=== PATIENT | female | born 1980 | race Two or more races ===

== ENCOUNTER 2018-08-20 11:05 | Observation (INO) | payer MEDICAID ==
[2018-08-20 12:36] LABS: Urine Bacteria FEW /hpf (None Seen); Urine Blood 1+ /uL (Negative); Urine Mucus FEW (None Seen); Urine Specific Gravity 1.026 (1.001-1.035); Urine WBC 37 /hpf (0 - 5)
[2018-08-20 12:44] LABS: BUN/Creatinine Ratio 11.7; Calcium 8.7 mg/dL (8.5-10.1); Potassium 3.9 mmol/L (3.5-5.1)
[2018-08-20 12:47] LABS: Alcohol, Urine < 3.0 mg/dL (0-5); Amphetamine Screen, Urine NEGATIVE (NEGATIVE); Barbiturate Scree,Urine NEGATIVE (NEGATIVE); Benzodiazephine Screen, Urine NEGATIVE (NEGATIVE); Cannabinoid Screen, Urine NEGATIVE (NEGATIVE); Cocaine Screen, Urine NEGATIVE (NEGATIVE); Opiate Scree,Urine NEGATIVE (NEGATIVE); Phencyclidine Screen, Urine NEGATIVE (NEGATIVE)
[2018-08-20] MEDS ORDERED: PREN-96 PO (13:09)
== END 2018-08-20 13:12 | disposition home or self-care (01) | DRG 566 ==
LOC: LDRP 11:05
PROVIDERS: ADMIT Specialist; ATTEND Specialist
DX: O99.613 Diseases of the digestive system complicating pregnancy, third trimester (principal); K52.9 Noninfective gastroenteritis and colitis, unspecified; O21.2 Late vomiting of pregnancy; O09.523 Supervision of elderly multigravida, third trimester; Z3A.37 37 weeks gestation of pregnancy
CPT/HCPCS: 36415; 59025; 80048; 80307; 81001; 81002; G0378

== ENCOUNTER 2018-09-10 09:05 | Observation (INO) | payer MEDICAID ==
[~2018-09-10 09:05] MED LIST: PREN-96 PO
== END 2018-09-10 10:15 | disposition home or self-care (01) | DRG 566 ==
LOC: LDRP 09:05
PROVIDERS: ADMIT Obstetrics & Gynecology; ATTEND Obstetrics & Gynecology
DX: O48.0 Post-term pregnancy (principal); O09.523 Supervision of elderly multigravida, third trimester; O62.9 Abnormality of forces of labor, unspecified; Z3A.40 40 weeks gestation of pregnancy
CPT/HCPCS: 59025; 76818; 81002; G0378

== ENCOUNTER 2018-09-12 14:10 | Observation (INO) | payer MEDICAID ==
[~2018-09-12] VITALS: Ht 165.1 cm; Wt 108.0 kg
== END 2018-09-12 15:45 | disposition home or self-care (01) | DRG 566 ==
LOC: LDRP 14:10
PROVIDERS: ADMIT Obstetrics & Gynecology; ATTEND Obstetrics & Gynecology
DX: O48.0 Post-term pregnancy (principal); O09.523 Supervision of elderly multigravida, third trimester; O62.9 Abnormality of forces of labor, unspecified; Z3A.40 40 weeks gestation of pregnancy
CPT/HCPCS: 59025; 76818; 81002; G0378

== ENCOUNTER 2018-09-14 08:45 | Observation (INO) | payer MEDICAID | END 2018-09-14 09:50 | disposition home or self-care (01) | DRG 566 | LOC: LDRP 08:45 | PROVIDERS: ADMIT Specialist; ATTEND Specialist | DX: O48.0 Post-term pregnancy (principal); O09.523 Supervision of elderly multigravida, third trimester; O62.9 Abnormality of forces of labor, unspecified; Z3A.40 40 weeks gestation of pregnancy | CPT/HCPCS: 59025; 76818; 81002; G0378 ==

== ENCOUNTER 2018-09-16 08:45 | Inpatient (IN) | payer MEDICAID ==
[~2018-09-16] VITALS: Ht 165.1 cm; Wt 106.6 kg
[2018-09-16] MEDS ORDERED: WITCH HAZEL-GLYCERIN PAD TOP PRN (12:30)
[2018-09-16] MEDS ORDERED: NALBUPHINE HCL 10 MG/1ml INJECTION IV PRN (12:30)
[2018-09-16] MEDS ORDERED: PHISODERM TOP SOLN 240ML BTL TOP PRN (12:30)
[2018-09-16] MEDS ORDERED: LIDOCAINE 2%HCL (LOCAL ANESTH.) INJ 20ML MDV ID ONE ×2 (12:30→15:15)
[2018-09-16] MEDS ORDERED: DERMOPLAST 60ML BOTTLE TOP PRN (12:30)
[2018-09-16] MEDS ORDERED: METHYLERGONOVINE MALEATE 0.2 MG/ML AMP IM PRN (12:30)
[2018-09-16 13:12] LABS: Basophils # (auto) 0.1 uL; Basophils % (auto) 0.7 % (0.0-2.0); Eosinophils # (auto) 0 uL; Eosinophils % (auto) 0.3 % (0.0-7.0); Hematocrit 39.5 % (36.0-46.0); Hemoglobin 13.1 g/dL (12.2-16.2); Lymphocytes # (auto) 1.7 uL; Lymphocytes % (auto) 19.8 % (10.0-50.0); Mean Corpuscular Hemoglobin 28.9 pg (28.0-32.0); Mean Corpuscular Hgb Conc. 33.2 g/dL (32.0-36.0); Monocytes # (auto) 0.5 uL; Monocytes % (auto) 5.4 % (0.0-12.0); Neutrophils # (auto) 6.2 uL; Neutrophils % (auto) 73.8 % (37.0-80.0); Platelet Count (auto) 253 10^3/uL (140-450); Red Blood Cells 4.54 10^6/uL (4.0-5.20); Red Cell Distribution Width 15.5 % (11.8-14.3); White Blood Cell 8.4 10^3/uL (4.4-10.8)
[2018-09-16 13:24] LABS: Albumin 2.9 g/dL (3.4-5.0); Calcium 8.8 mg/dL (8.5-10.1)
[2018-09-16 13:28] LABS: BUN/Creatinine Ratio 15.9; Bilirubin, Total 0.3 mg/dL (0.2-1.0); INR 0.9 (0.9-1.15); Prothrombin Time 9.7 sec (9.27-12.13); Total Protein 7.4 g/dL (6.4-8.2)
[2018-09-16] MEDS ORDERED: LACT. RINGERS/OXYTOCIN 20UNITS 1,000 ML IV SCH ×2 (14:01→14:21)
[2018-09-16 14:06] LABS: Urine Amorphous Crystal FEW /hpf (None Seen); Urine Bacteria FEW /hpf (None Seen); Urine Blood 1+ /uL (Negative); Urine Mucus FEW (None Seen); Urine WBC 2 /hpf (0 - 5)
[2018-09-16 14:09] LABS: Alcohol, Urine < 3.0 mg/dL (0-5); Amphetamine Screen, Urine NEGATIVE (NEGATIVE); Barbiturate Scree,Urine NEGATIVE (NEGATIVE); Benzodiazephine Screen, Urine NEGATIVE (NEGATIVE); Cannabinoid Screen, Urine NEGATIVE (NEGATIVE); Cocaine Screen, Urine NEGATIVE (NEGATIVE); Opiate Scree,Urine NEGATIVE (NEGATIVE); Phencyclidine Screen, Urine NEGATIVE (NEGATIVE)
[2018-09-16] MEDS: LACTATED RINGER'S 1,000 ML IV SCH ×2 (14:11→20:28)
[2018-09-16] MEDS ORDERED: TERBUTALINE SULFATE 1 MG/ML 1ML VIAL SC ONE (14:15)
[2018-09-16] MEDS ORDERED: IBUPROFEN 600 MG TAB PO PRN (22:30)
[2018-09-17 02:40] VITALS: BP 105/58
[2018-09-17] MEDS: LACTATED RINGER'S 1,000 ML IV SCH (04:28)
[2018-09-17 06:50] VITALS: BP 102/58
[2018-09-17] MEDS ORDERED: RHO (D) IMMUNE GLOBULIN 300 MCG INJ IM ONE (08:00)
[2018-09-17] MEDS: DOCUSATE CALCIUM 240 MG CAP PO SCH (09:19)
[2018-09-17 11:00] VITALS: BP 102/71
[2018-09-17 15:04] VITALS: BP 109/72
[2018-09-17 19:09] VITALS: BP 124/65
[2018-09-17 23:10] VITALS: BP 107/61
[2018-09-18 03:00] VITALS: BP 110/65
[2018-09-18 05:09] LABS: RPR Non Reactive (Non Reactive)
[2018-09-18 06:30] VITALS: BP 107/58
[2018-09-18] MEDS: DOCUSATE CALCIUM 240 MG CAP PO SCH (09:54)
[2018-09-18 10:18] VITALS: BP 113/67
== END 2018-09-18 10:20 | disposition home or self-care (01) | DRG 560 ==
LOC: LDRP 08:45 → OBSVTOIN 12:00 → LDRP 09-17 19:54
PROVIDERS: ADMIT Specialist; ATTEND Specialist
PROC: 10D07Z6 Extraction of Products of Conception, Vacuum, Via Natural or Artificial Opening (ICD-10-PCS; principal; 2018-09-16)
PROC: 30233S1 Transfusion of Nonautologous Globulin into Peripheral Vein, Percutaneous Approach (ICD-10-PCS; 2018-09-17)
DX: O48.0 Post-term pregnancy (principal); O70.0 First degree perineal laceration during delivery; Z37.0 Single live birth; Z3A.40 40 weeks gestation of pregnancy
CPT/HCPCS: 36415; 59025; 59409; 76818; 80053; 80307; 81001; 81002; 85025; 85610; 85730; 86592; 86850; 86900; 86901; 90384; 96361; 96366; 96372; G0378; J2590